=== PATIENT | male | born 2000 | race Caucasian/White ===

== ENCOUNTER 2019-10-08 16:48 | Emergency (ER) | payer SELFPAY ==
[~2019-10-08] VITALS: Ht 177.8 cm; Wt 63.6 kg
[2019-10-08 16:52] VITALS: BP 143/84; TEMP 98
[2019-10-08] MEDS ORDERED: VALTREX1 GM PO ×2 (17:18→17:52)
[2019-10-08 18:23] VITALS: PULSE 91
== END 2019-10-08 18:25 | disposition home or self-care (01) ==
LOC: COL.ER 16:48
DX: B00.2 Herpesviral gingivostomatitis and pharyngotonsillitis (principal)